=== PATIENT | male | born 1970 | race Caucasian/White ===

== ENCOUNTER 2016-10-02 09:51 | Emergency (ER) | payer SELFPAY | END 2016-10-02 11:52 | disposition home or self-care (01) | LOC: ER 09:51 | DX: S69.92XA Unspecified injury of left wrist, hand and finger(s), initial encounter (principal); F17.200 Nicotine dependence, unspecified, uncomplicated; W23.0XXA Caught, crushed, jammed, or pinched between moving objects, initial encounter | CPT/HCPCS: 73140-LT; 99283 ==